=== PATIENT | female | born 1980 | race Caucasian/White ===

== ENCOUNTER 2022-08-15 12:07 | Emergency (ER) | payer OTHER ==
[~2022-08-15] VITALS: Ht 165.1 cm; Wt 65.4 kg
--- NOTE | 2022-08-15 12:28 | NUR ---
PT AMB TO ER BED 3
[2022-08-15 12:34] VITALS: BP 119/91
--- NOTE | 2022-08-15 12:45 | NUR ---
ER/PA AT BEDSIDE
[2022-08-15] MEDS ORDERED: KETOROLAC 30 MG/ML VIAL IM ONE (13:10)
--- NOTE | 2022-08-15 13:27 | NUR ---
UA AT BEDSIDE
[2022-08-15] MEDS ORDERED: IBUP-2213 PO (14:42)
--- NOTE | 2022-08-15 14:47 | NUR ---
Patient discharged with v/s stable. Written and verbal after care instructions given and explained. Patient verbalized understanding. Ambulatory with steady gait. All questions addressed prior to discharge. Advised to follow up with PMD.
== END 2022-08-15 14:47 | disposition home or self-care (01) ==
LOC: MED 12:07
DX: N60.02 Solitary cyst of left breast (principal)
CPT/HCPCS: 76641; 81002; 81025; 96372; 99284; J1885; Q0092